=== PATIENT | female | born 1995 ===

== ENCOUNTER 2024-01-22 07:29 | Emergency (ER) | payer OTHER, SELFPAY ==
[2024-01-22 07:57] VITALS: BP 115/73; PULSE 88; RESP 18; TEMP 36.7; O2SAT 100; BMI 23.9
[2024-01-22 08:06] VITALS: RESP 18
--- NOTE | 2024-01-22 08:14 | ED_ITS ---
HPI - General Adult General Chief complaint: General Medical Stated complaint: Headache, dizziness Time Seen by Provider: 01/22/24 08:14 History of Present Illness HPI narrative: Patient is a 28-year-old female who has felt unwell for about 2 days with nausea, vomiting, dizziness, sore throat body aches. She has also had some urinary frequency without definite dysuria. She has also had some right-sided flank pain. She does not know if she has had a fever. She has felt somewhat fe verish. Related Data Previous Rx's Medication Instructions Recorded ibuprofen 600 mg tablet 600 mg PO Q6H PRN fever or pain 01/22/24 #14 tabs ondansetron 4 mg disintegrating 4 mg PO Q6H PRN nausea and 01/22/24 tablet vomiting #7 tabs penicillin V potassium 500 mg 500 mg PO TID #30 tabs 01/22/24 tablet Allergies Allergy/AdvReac Type Severity Reaction Status Date / Time No Known Allergies Allergy Verified 01/22/24 07:56 Review of Systems Review of Systems: Yes all other systems are reviewed and are negative [facility] Social History Social History Smoked in Last 30 Days: Yes Use of substances other than those prescribed or required for medical reasons: No Advance Directives: No Advance Directives Information Provided: No Patient : Yes (patient not sure) Physical Exam ED Vital Signs: Vital Signs - 24 hr 01/22/24 07:57 01/22/24 08:06 01/22/24 08:41 Temperature 98.1 F 98.1 F Pulse Rate 88 85 Respiratory Rate 18 18 20 Blood Pressure 115/73 114/70 Pulse Oximetry 100 100 Oxygen Delivery Method Room Air Room Air 01/22/24 09:55 Temperature 98.8 F Pulse Rate 76 Respiratory Rate 14 Blood Pressure 106/54 L Pulse Oximetry 99 Oxygen Delivery Method Room Air BMI result Body Mass Index 23.9 Const Other: The patient is awake and alert. She does not seem in obvious distress. HENMT Other: The appearance of the face is unremarkable. Mucous membranes moist. The posterior pharynx is somewhat injected. No significant tonsillar tissue. No exudate Eyes Other: Pupils are round equal. Conjunctivae are clear. Eyes unremarkable. Neck Other: Neck is supple and benign. No significant adenopathy. Resp Effort & Inspection: normal respiratory effort Auscultation: clear to auscultation bilaterally Cardio Rate: regular rate Rhythm: regular rhythm Heart sounds: S1 normal heart sound present and S2 normal heart sound present GI Other: Some mild epigastric tenderness Neuro Other: The patient is awake, alert, pleasant, cooperative. Demeanor is nontoxic. Speech is clear. Extrem Other: No peripheral edema, no calf swelling or tenderness Medications Administered Discontinued Medications Generic Name Dose Route Start Last Admin Trade Name Ana PRN Reason Stop Dose Admin Acetaminophen 975 mg 01/22/24 09:17 01/22/24 09:30 Acetaminophen 325 Mg Tablet PO 01/22/24 09:18 975 mg ONCE ONE Administration Ibuprofen 600 mg 01/22/24 09:17 01/22/24 09:30 Ibuprofen 600 Mg Tablet PO 01/22/24 09:18 600 mg ONCE ONE Administration Ondansetron HCl 4 mg 01/22/24 09:17 01/22/24 09:30 Ondansetron Odt 4 Mg Tab.Rapdis TRANSLINGU 01/22/24 09:18 4 mg ONCE ONE Administration Penicillin V Potassium 500 mg 01/22/24 10:12 01/22/24 10:42 Penicillin V Potassium 250 Mg Tablet PO 01/22/24 10:13 500 mg ONCE ONE Administration Medical Decision Making Medical Decision Making MDM Narrative: The patient presents with 2 days of symptoms that seemed to combine upper respiratory symptoms with some nausea and vomiting and dizziness. Vital signs are unremarkable. Clinically the patient looks mildly unwell but not acutely toxic. She had concerns about a possible UTI or kidney infection. Her urinalysis does not suggest a UTI. However a strep test was positive for group a strep. She will be started on penicillin. She should follow up with the regular doctor at the [facility] in [place]. She was given a work note. She should return if worse. Lab Data Labs: Lab Results 01/22/24 Range/Units 08:44 Urine Color Yellow Urine Appearance Clear Urine pH 6.0 (5.0-9.0) Ur Specific [place] 1.020 (1.005-1.025) Urine Protein Negative (Neg-Trace) mg/dL Urine Glucose (UA) Negative (Negative) mg/dL Urine Ketones Negative (Negative) mg/dL Urine Blood Moderate (2+) H (Negative) Urine Nitrite Negative (Negative) Ur Leukocyte Esterase Negative (Negative) Urine RBC 11-20 H (0-2) /HPF Urine WBC 0-5 (0-5) /HPF Ur Squamous Epith Cells 6-10 (0-2) /HPF Urine Bacteria None Seen (None Seen) Hyaline Casts 0-2 (0-2) /LPF Urine Test NEGATIVE (NEGATIVE) COVID-19 (CRISSY) Negative (Negative) COVID-19 Clin Com See Note S. pyogenes GrpA DEREK Positive A (Negative) Discharge Plan Discharge Clinical Impression: Strep throat Patient Disposition: Home, Self-Care Instructions: Strep Throat (ED) Additional Instructions: You have tested positive for strep throat today. Please take the penicillin 3 times a day as prescribed for 10 days. Please complete the entire course of antibiotic. A prescription for ibuprofen has been sent to your pharmacy as well which you may use as needed for discomfort. You may use ondansetron as needed for nausea. Drink a lot of fluids. Please follow-up with your regular doctor's office as needed. Return to the emergency room if significantly worse. Prescriptions: New penicillin V potassium 500 mg tablet 500 mg PO TID Qty: 30 0RF ibuprofen 600 mg tablet 600 mg PO Q6H PRN (Reason: fever or pain) Qty: 14 0RF ondansetron 4 mg tablet,disintegrating 4 mg PO Q6H PRN (Reason: nausea and vomiting) Qty: 7 0RF Referrals: [facility] [Provider Group] (Strep throat) Stand Alone Forms: Work/School Release Interventions: ED Discharge Assessment Last Done: 01/22/24 11:14 Discharge Date/Time: 01/22/24 11:15
--- NOTE | 2024-01-22 08:21 | PC.NURSE ---
Patient comes to ED due to vomiting x2 days, sore throat x1 day, dizziness that started this AM, right sided flank pain x1 day and urinary frequency x2days but denies pain or odor. Patient is alert and oriented, respirations even and unlabored, vss, throat slightly red on sides, patient to go to bathroom to get urine sample at this time.
[2024-01-22 08:41] VITALS: BP 114/70; PULSE 85; RESP 20; TEMP 36.7; O2SAT 100
[2024-01-22 09:02] LABS: UPreg QC Valid YES
[2024-01-22 09:03] LABS: Appearance Urine Clear; Color Urine Yellow; Glucose Urine UA Negative (Negative); Leukocyte Esterase Urine Negative (Negative); Nitrite Urine Negative (Negative); UMIC TRIGGER UACC YES; Urine Blood Moderate (2+) (Negative); Urine Ketones Negative (Negative); Urine Pregnancy NEGATIVE (NEGATIVE); Urine Protein Negative (Neg-Trace)
[2024-01-22 09:05] LABS: Bacteria Urine None Seen (None Seen); Hyaline Casts Urine 0-2 /LPF (0-2); WBC Urine 0-5 /HPF (0-5)
[2024-01-22 09:06] LABS: IDNOW Serial# 08D9AD1C; Strep A Nucleic Acid Positive (Negative)
[2024-01-22 09:16] LABS: COVID-19 Test Negative (Negative); IDNOW Serial# 152EDE1D
[2024-01-22] MEDS: Ibuprofen 600 MG TABLET PO (09:30)
[2024-01-22] MEDS: Ondansetron ODT 4 MG TAB.RAPDIS TRANSLINGU (09:30)
[2024-01-22] MEDS: Acetaminophen 325 MG TABLET 975 MG PO (09:30)
[2024-01-22 09:55] VITALS: BP 106/54; PULSE 76; RESP 14; TEMP 37.1; O2SAT 99
[2024-01-22] MEDS: Penicillin V Potassium 250 MG TABLET 500 MG PO (10:42)
== END 2024-01-22 11:15 | disposition home or self-care (01) ==
PROVIDERS: Emergency Provider Emergency Medicine
DX: J02.0 Streptococcal pharyngitis (principal); R51.9 Headache, unspecified; R42 Dizziness and giddiness; R11.2 Nausea with vomiting, unspecified; R35.0 Frequency of micturition; Z11.52 Encounter for screening for COVID-19; Z79.899 Other long term (current) drug therapy
CPT/HCPCS: 81001; 81003; 81025; 87635; 87651; 99283; 99284

== ENCOUNTER 2024-09-22 10:14 | Emergency (ER) | payer OTHER, SELFPAY ==
--- NOTE | 2024-09-22 10:29 | PC.NURSE ---
No call to name at 10:28am.
--- NOTE | 2024-09-22 10:47 | PC.NURSE ---
No answer to name at 10:47.
== END 2024-09-22 10:54 | disposition left against medical advice (07) ==
PROVIDERS: Emergency Provider Student in an Organized Health Care Education/Training Program
DX: J02.9 Acute pharyngitis, unspecified (principal)

== ENCOUNTER 2024-09-26 13:17 | Emergency (ER) | payer OTHER, SELFPAY ==
[2024-09-26 13:23] VITALS: BP 112/58; PULSE 79; RESP 19; TEMP 36.8; O2SAT 100; BMI 26.2
--- NOTE | 2024-09-26 13:31 | ED.GENADULT ---
HPI - General Adult General Chief complaint: General Medical Stated complaint: Sore throat Time Seen by Provider: 09/26/24 13:30 Source: patient Mode of arrival: ambulatory Limitations: no limitations History of Present Illness ED Provider: Adilia SAM narrative: Patient is a 29-year-old female, 4 months , estimated due date 03/12/2025 presenting to the emergency department with 3 days of sore throat. Denies cough or other URI symptoms. Denies fevers. Feels as though pain is worse on right side. Denies difficulty swallowing. MD complaint: sore throat Onset (ago): day(s) Associated symptoms: denies other symptoms Treatments prior to arrival: none Related Data Previous Rx's ?Medication ?Instructions ?Recorded ibuprofen 600 mg tablet 600 mg PO Q6H PRN fever or pain 01/22/24 #14 tabs ondansetron 4 mg disintegrating 4 mg PO Q6H PRN nausea and 01/22/24 tablet vomiting #7 tabs penicillin V potassium 500 mg 500 mg PO TID #30 tabs 01/22/24 tablet Allergies Allergy/AdvReac Type Severity Reaction Status Date / Time No Known Allergies Allergy Verified 09/26/24 13:24 Review of Systems Review of Systems: As per HPI Yes all other systems are reviewed and are negative Constitutional: Constitutional: Reports as per HPI [facility] Social History Social History Advance Directives: No Advance Directives Information Provided: Yes Do you have a plan to hurt others: No Plan Physical Exam ED Vital Signs: Vital Signs - 24 hr 09/26/24 13:23 09/26/24 16:36 Temperature 98.2 F 98.2 F Pulse Rate 79 79 Respiratory Rate 19 19 Blood Pressure 112/58 L 112/58 L Pulse Oximetry 100 100 Oxygen Delivery Method Room Air Room Air BMI result Body Mass Index 26.2 Vital signs have been reviewed and appear to be correct. Blood pressure normal. Heart rate normal. Respiratory rate normal. Temperature normal. Oxygen saturation normal. Const General: cooperative, healthy appearing and no acute distress Orientation/consciousness: oriented to person, oriented to place, oriented to time and patient oriented x3 Limitations: no limitations HENMT Head: Yes normocephalic and Yes atraumatic Ears: external ears normal General nose exam: Normal external nose present Face and sinus: Yes face symmetric Mouth: oropharynx normal and moist mucous membranes Throat: Yes uvula midline, Yes abnormal tonsil (erythema, no edema or exudate, tonsiloliths present), No peritonsillar mass and No uvular edema Eyes Pupils: Equal, round and reactive pupils present Neck Neck: Yes normal visual inspection and Yes supple Lymphatic: lymphadenopathy right anterior cervical Resp Effort & Inspection: normal respiratory effort and able to speak in complete sentences Auscultation: clear to auscultation bilaterally Cardio Rate: regular rate Rhythm: regular rhythm Heart sounds: S1 normal heart sound present and S2 normal heart sound present GI Palpation (GI): Soft to palpation and nontender Auscultation: normoactive bowel sounds General: Yes no CVA tenderness Back/Spine/Pelvis Back: no CVA tenderness Skin General skin exam: elasticity normal and turgor normal Neuro General: oriented to person, oriented to place, oriented to time, patient oriented x3, moves all extremities, no focal motor deficits and CN's II-XI intact bilaterally Cranial nerves: Yes Equal, round and reactive pupils present Cognition (Neuro): normal cognition Extrem General: Yes full ROM, Yes no pedal edema and Yes no calf tenderness Psych Mental Status: mental status grossly normal Affect: normal affect Thought process: Normal thought process present Course Course Course Narrative: [employer]. [age] year female presents to ED for sore throat. Patient informed weeks . Patient denies any abdominal pain, vaginal bleeding, vaginal cramping. SARs strep ordered Medical Decision Making Medical Decision Making MDM Narrative: Patient is a 29-year-old female, 4 months , estimated due date 03/12/2025 presenting to the emergency department with 3 days of sore throat. On exam patient is awake, A+Ox3, VS WNL, afebrile, normal neurological exam without focal deficits, physical exam findings as above. Given reported symptoms and physical exam findings, initial differential includes strep versus viral pharyngitis, other viral illness, COVID, flu, RSV. Strep and viral serology negative. Do not suspect [employer] or RPA based on physical exam findings, no difficulty swallowing, no muffled speech. Discussed with patient that symptoms are likely due to viral illness. Advised Tylenol, [id number] Chloraseptic spray, gargling with warm salt water and honey. Follow up with PCP. Return precautions discussed at bedside. Patient verbalized understanding of and agreement with plan. Differential Diagnosis Differential Diagnoses: The differential diagnosis associated with the presentation includes As per [facility] Lab Data [facility] Lab Attestation statement: I reviewed the patient's lab results. As per [facility] Labs: Lab Results 09/26/24 Range/Units 13:32 Influenza Type A (PCR) NEGATIVE (Negative) Influenza Type B (PCR) NEGATIVE (Negative) RSV RNA Qual (PCR) NEGATIVE (Negative) SARS-CoV-2 RNA (RT-PCR) NEGATIVE (Negative) S. pyogenes GrpA DEREK Negative (Negative) External Record Review External record reviewed: Inpatient record, Office record and Outpatient record Discharge Plan Discharge Clinical Impression: Pharyngitis Patient Disposition: Home, Self-Care Instructions: Pharyngitis (ED) Additional Instructions: You were evaluated in the emergency department today for sore throat. Your strep, flu, COVID and RSV tests were all negative. Your symptoms are likely due to a viral illness which will resolve on their own over time. We recommend that you take 650 mg of Tylenol every 6 hours as needed for pain. You can also use [id number] Chloraseptic spray. We recommend that you gargle with warm salt water several times daily. You can also use 1 tsp of honey several times daily. Return to the emergency department if you develop fever, difficulty swallowing or breathing or any other new or concerning symptoms. Follow-up with your PCP and or OBGYN. Prescriptions: No Action penicillin V potassium 500 mg tablet 500 mg PO TID Qty: 30 0RF ibuprofen 600 mg tablet 600 mg PO Q6H PRN (Reason: fever or pain) Qty: 14 0RF ondansetron 4 mg tablet,disintegrating 4 mg PO Q6H PRN (Reason: nausea and vomiting) Qty: 7 0RF Stand Alone Forms: Work/School Release Interventions: ED Discharge Assessment Last Done: 09/26/24 16:36 Discharge Date/Time: 09/26/24 16:36 Print Language: Georgian
[2024-09-26 14:11] LABS: IDNOW Serial# 08D9AD1C; Strep A Nucleic Acid Negative (Negative)
[2024-09-26 15:00] LABS: Influenza A PCR NEGATIVE (Negative); Influenza B PCR NEGATIVE (Negative); Resp Syncy Virus RNA Qual PCR NEGATIVE (Negative); SARS COV2 PCR INHOUSE NEGATIVE (Negative)
[2024-09-26 16:36] VITALS: BP 112/58; PULSE 79; RESP 19; TEMP 36.8; O2SAT 100
== END 2024-09-26 16:36 | disposition home or self-care (01) ==
PROVIDERS: Physician Assistant; Emergency Provider Emergency Medicine
DX: O26.92 Pregnancy related conditions, unspecified, second trimester (principal); J02.9 Acute pharyngitis, unspecified; Z3A.16 16 weeks gestation of pregnancy; Z03.818 Encounter for observation for suspected exposure to other biological agents ruled out
CPT/HCPCS: 0241U; 87651; 99282; 99283